=== PATIENT | female | born 1985 | race Two or more races ===

== ENCOUNTER 2017-04-25 07:23 | Inpatient (IN) | payer OTHER ==
[~2017-04-25] VITALS: Ht 157.5 cm; Wt 3.6 kg
[~2017-04-25 07:23] MED LIST: ATABEX DHA 200200 MG; DICLEGIS DR 101 EACH PO; UNISOM25 MG; ZANTAC150 M3
[2017-04-28] MEDS ORDERED: DOCUSATE SODIU100 MG PO (12:13)
[2017-04-28] MEDS ORDERED: PREPLUS CA-FE1 EACH PO (12:13)
[2017-04-28] MEDS ORDERED: NABUMETONE750 MG PO (12:13)
[2017-04-28] MEDS ORDERED: Mylicon 125MG PO (12:13)
== END 2017-04-28 16:20 | DRG 766 ==
LOC: OBS/DEL 07:23 → LDR 11:26 → SURG-SUITE 11:26 → O/R 13:56 → SURG-SUITE 14:59
PROVIDERS: Obstetrics & Gynecology
PROC: 0UB10ZZ Excision of Left Ovary, Open Approach (ICD-10-PCS; 2017-04-25)
PROC: 4A1HXCZ Monitoring of Products of Conception, Cardiac Rate, External Approach (ICD-10-PCS; 2017-04-25)
PROC: BY4FZZZ Ultrasonography of Third Trimester, Single Fetus (ICD-10-PCS; 2017-04-25)
PROC: 10D00Z1 Extraction of Products of Conception, Low, Open Approach (ICD-10-PCS; principal; 2017-04-25 13:30)
DX: O36.63X0 Maternal care for excessive fetal growth, third trimester, not applicable or unspecified (principal); O34.83 Maternal care for other abnormalities of pelvic organs, third trimester; N83.292 Other ovarian cyst, left side; O48.0 Post-term pregnancy; Z3A.40 40 weeks gestation of pregnancy; O36.8130 Decreased fetal movements, third trimester, not applicable or unspecified; Z37.0 Single live birth; O75.82 Onset (spontaneous) of labor after 37 completed weeks of gestation but before 39 completed weeks gestation, with delivery by (planned) cesarean section

== ENCOUNTER 2020-03-04 13:42 | Emergency (ER) | payer OTHER ==
[~2020-03-04] VITALS: Ht 157.5 cm; Wt 64.0 kg
[~2020-03-04 13:42] MED LIST changes: +DOCUSATE SODIU100 MG PO; +Mylicon 125MG PO; +NABUMETONE750 MG PO; +PREPLUS CA-FE1 EACH PO
[2020-03-04] MEDS ORDERED: OBTREX DHA COM1 EACH PO (13:54)
== END 2020-03-04 19:21 | disposition home or self-care (01) ==
LOC: ER 13:42
DX: O46.8X1 Other antepartum hemorrhage, first trimester (principal); Z3A.01 Less than 8 weeks gestation of pregnancy; Z20.828 Contact with and (suspected) exposure to other viral communicable diseases

== ENCOUNTER 2020-03-07 19:23 | Emergency (ER) | payer OTHER ==
[~2020-03-07] VITALS: Ht 157.5 cm; Wt 64.0 kg
[~2020-03-07 19:23] MED LIST changes: +OBTREX DHA COM1 EACH PO
== END 2020-03-08 10:30 | disposition home or self-care (01) ==
LOC: ER 19:23
DX: O02.1 Missed abortion (principal); Z03.818 Encounter for observation for suspected exposure to other biological agents ruled out

== ENCOUNTER 2023-10-30 15:59 | Emergency (ER) | payer OTHER ==
[~2023-10-30] VITALS: Ht 157.5 cm; Wt 63.5 kg
[2023-10-30] MEDS ORDERED: ONDANSETRON HCL 2 MG/ML VIAL ONE (16:40)
[2023-10-30] MEDS ORDERED: ONDANSETRON HCL 2 MG/ML VIAL IV ONE (16:45)
[2023-10-30] MEDS ORDERED: RINGERS SOLUTION,LACTATED 1,000 ML IV ONE (16:45)
[2023-10-30 17:09] LABS: HEMATOCRIT 39.1 % (36.0-45.00); HEMOGLOBIN 13.6 g/dL (12.0-15.00); MEAN CELL VOLUME 87.5 fL (80.00-100.00); MEAN CORPUSCULAR HEMOGLOBIN 30.4 pg (27.00-32.0); MEAN CORPUSCULAR HGB CONC 34.7 g/dl (32.0-36.0); PLATELET COUNT 271 K/uL (150-450); RED BLOOD COUNT 4.46 M/uL (4.00-6.00); RED CELL DISTRIBUTION WIDTH 12.7 % (11.5-14.5)
[2023-10-30 17:20] LABS: INR 1.02; PARTIAL THROMBOPLASTIN TIME 27.8 SECONDS (22.0-34.0); PROTHROMBIN TIME 11.1 SECONDS (9.0-11.5)
[2023-10-30 17:38] LABS: URINE APPEARANCE Cloudy; URINE BILIRRUBIN Negative (NEGATIVE); URINE BLOOD Negative; URINE COLOR Yellow; URINE GLUCOSE Negative (NEGATIVE); URINE KETONE Trace (NEGATIVE); URINE LEUKOCYTE Negative; URINE NITRATE Negative; URINE PROTEIN Trace (NEGATIVE)
[2023-10-30 17:39] LABS: BILIRUBIN TOTAL 0.5 mg/dL (0.3-1.2); CALCIUM 8.9 mg/dL (8.5-10.1); CREATININE SERUM 0.71 mg/dL (0.55-1.02); GFR 91.17; GLOBULINA 3.5 G/DL (2.4-3.5); POTASSIUM 3.76 mEq/L (3.5-5.1); TOTAL PROTEIN 7.5 gm/dL (6.4-8.2)
[2023-10-30 17:42] LABS: URINE BACTERIA 7243.6 uL (0.0-1933); URINE EPITHELIAL CELLS 54.2 uL (0.0-38.8); URINE RBC 67.3 uL (0.0-20.8)
[2023-10-30 17:59] LABS: URINE CAST 0.76 uL (0.0-1.40)
[2023-10-30 18:00] LABS: URINE CRYSTALS FEW /HPF; URINE MUCUS MODERATE
== END 2023-10-30 21:41 | disposition home or self-care (01) ==
LOC: ER 16:00
PROVIDERS: General Practice
DX: O21.9 Vomiting of pregnancy, unspecified (principal)
CPT/HCPCS: 36415; 76817; 96365; 99284; J2405

== ENCOUNTER 2024-05-31 09:00 | Inpatient (IN) | payer OTHER ==
[~2024-05-31] VITALS: Ht 157.5 cm; Wt 3.2 kg
[2024-05-31 12:46] LABS: HEMATOCRIT 36.4 % (36.0-45.00); MEAN CELL VOLUME 91.9 fL (80.00-100.00); MEAN CORPUSCULAR HEMOGLOBIN 30.4 pg (27.00-32.0); MEAN CORPUSCULAR HGB CONC 33.1 g/dl (32.0-36.0); PLATELET COUNT 246 K/uL (150-450); RED BLOOD COUNT 3.96 M/uL (4.00-6.00); RED CELL DISTRIBUTION WIDTH 14.5 % (11.5-14.5)
[2024-05-31 13:14] LABS: INR < 0.93; PARTIAL THROMBOPLASTIN TIME 26.1 SECONDS (22.0-34.0); PROTHROMBIN TIME 10.2 SECONDS (9.0-11.5)
[2024-05-31 13:19] LABS: ALBUMIN 3.1 gm/dL (3.4-5.0); BILIRUBIN TOTAL 0.42 mg/dL (0.3-1.2); CALCIUM 9.5 mg/dL (8.5-10.1); CREATININE SERUM 0.64 mg/dL (0.55-1.02); GFR 102.78; GLOBULINA 3.6 G/DL (2.4-3.5); POTASSIUM 3.74 mEq/L (3.5-5.1); TOTAL PROTEIN 6.7 gm/dL (6.4-8.2)
[2024-06-06 06:24] VITALS: BP 111/73
[2024-06-06] MEDS ORDERED: CEFAZOLIN SODIUM 1,000 MG VIAL ONE (09:26)
[2024-06-06] MEDS ORDERED: CITRIC ACID/SODIUM CITRATE 30 ML BLIST.PACK PO ONE (09:26)
[2024-06-06] MEDS ORDERED: METHYLERGONOVINE MALEATE 0.2 MG/ML AMPUL ONE (11:08)
[2024-06-06] MEDS ORDERED: CARBOPROST TROMETHAMINE 250 MCG/ML AMPUL IM ONE (11:14)
[2024-06-06] MEDS ORDERED: OXYTOCIN 1,000 ML IV SCH (11:45)
[2024-06-06] MEDS ORDERED: MORPHINE SULFATE 4 MG/ML CARTRIDGE IV PRN (11:45)
[2024-06-06] MEDS ORDERED: KETOROLAC TROMETHAMINE 30 MG VIAL IV SCH (12:00)
[2024-06-06] MEDS ORDERED: MORPHINE SULFATE 4 MG/ML VIAL IV ONE ×2 (12:25→12:55)
[2024-06-06] MEDS ORDERED: KETOROLAC TROMETHAMINE 30 MG VIAL IV ONE (12:55)
[2024-06-06] MEDS ORDERED: OXYTOCIN 10 UNITS/ML VIAL ONE (12:59)
[2024-06-06] MEDS ORDERED: KETOROLAC TROMETHAMINE 30 MG VIAL ONE (13:09)
[2024-06-06 13:50] VITALS: BP 122/80
[2024-06-06 16:32] VITALS: BP 114/76
[2024-06-06 20:00] VITALS: BP 107/71
[2024-06-07 00:56] VITALS: BP 97/64
[2024-06-07 08:00] VITALS: BP 106/76
[2024-06-07 16:00] VITALS: BP 115/77
[2024-06-08 00:28] VITALS: BP 110/73
[2024-06-08 08:00] VITALS: BP 112/76
[2024-06-08] MEDS ORDERED: IBUprofen 400 MG TABLET PO SCH (09:00)
[2024-06-08] MEDS ORDERED: ERYTHROMYCIN BASE OPHT 1GM EACH TUBE OP ONE (13:15)
[2024-06-08] MEDS ORDERED: OXYTOCIN 20 UNITS/1000ML RL PIGGYBAG IV ONE (13:15)
== END 2024-06-08 13:53 | disposition home or self-care (01) | DRG 788 ==
LOC: OB/GYN 06-06 06:49 → O/R 06-06 06:49 → LDR 06-06 08:30 → OB/GYN 06-06 12:06
PROVIDERS: ADMIT Obstetrics & Gynecology; ATTEND Obstetrics & Gynecology
PROC: 4A1HXCZ Monitoring of Products of Conception, Cardiac Rate, External Approach (ICD-10-PCS; 2024-06-06)
PROC: 10D00Z1 Extraction of Products of Conception, Low, Open Approach (ICD-10-PCS; principal; 2024-06-06 08:30)
DX: O32.2XX0 Maternal care for transverse and oblique lie, not applicable or unspecified (principal); O34.211 Maternal care for low transverse scar from previous cesarean delivery; Z3A.39 39 weeks gestation of pregnancy; Z37.0 Single live birth